=== PATIENT | male | born 1950 | race Caucasian/White ===

== ENCOUNTER 2024-07-21 12:56 | Inpatient (IN) | payer MEDICARE ==
[~2024-07-21] VITALS: Ht 180.3 cm; Wt 99.8 kg
[~2024-07-21 12:56] MED LIST: ARICEPT5 M1 PO; IBUPROFEN600 MG PO; SEROQUEL50 MG PO; ZESTRIL10 MG PO
[2024-07-21] MEDS ORDERED: LORazepam 1 MG TAB PO PRN (14:05)
[2024-07-21] MEDS ORDERED: Water, Sterile 10 ML VIAL IM PRN (14:05)
[2024-07-21] MEDS ORDERED: LORazepam 2 MG/ML VIAL IM PRN (14:05)
[2024-07-21] MEDS ORDERED: Ziprasidone Mesylate 20 MG VIAL IM PRN (14:10)
[2024-07-21] MEDS ORDERED: MG-AL HYDROXIDE/SIMETICONE 30 ML UDC PO PRN (15:25)
[2024-07-21] MEDS ORDERED: Magnesium Hydroxide 30 ML UDC PO PRN (15:25)
[2024-07-21] MEDS ORDERED: ACETAMINOPHEN 325 MG TAB PO PRN (15:25)
[2024-07-21] MEDS ORDERED: Menthol/Zinc Oxide 4 GM THIN T PRN (15:35)
[2024-07-21] MEDS ORDERED: IBUPROFEN 600 MG TAB PO PRN (15:55)
[2024-07-21 20:00] VITALS: BP 148/81
[2024-07-21] MEDS ORDERED: Memantine Hydrochloride 10 MG TAB PO SCH (21:00)
[2024-07-21] MEDS ORDERED: DIVALPROEX SODIUM 125 MG CAP PO SCH (21:00)
[2024-07-22 07:00] LABS: BASO % 0.1 % (0.0-1.0); MEAN CELL VOLUME 88.1 fl (80.0-94.0); MEAN CORPUSCULAR HGB 29.5 pg (27.0-31.0); MEAN CORPUSCULAR HGB CONC 33.6 g/dl (33.0-37.0); MEAN PLATELET VOLUME 9.8 fl (9.6-12.3); NEUT # 9.6 10*3/uL (2.3-7.9); NEUT % 75.9 % (47.0-73.0); PLATELET COUNT AUTOMATED 320 10*3/uL (130-400); RED BLOOD COUNT 5.11 10*6/uL (4.50-5.90); RED CELL DISTRI WIDTH 13.8 % (0-14.5); WHITE BLOOD COUNT 12.6 10*3/uL (4.8-10.8)
[2024-07-22 07:27] LABS: ALKALINE PHOSPHATASE 63 U/L (46-116); BUN 14 mg/dl (9-23); CHLORIDE 102 mmol/L (98-107); CHOLESTEROL 145 mg/dL (<200); LDL CHOLESTEROL 83 mg/dL (9-159); POTASSIUM 4.2 mmol/L (3.4-5.1); SGPT/ALT 23 U/L (5-49); TOTAL PROTEIN 6.6 gm/dL (6.0-8.0); TRIGLYCERIDES 94 mg/dl (<150)
[2024-07-22 08:00] VITALS: BP 104/62
[2024-07-22 08:15] LABS: VITAMIN D, 25-HYDROXY 56.5 ng/mL (30-100)
[2024-07-22] MEDS ORDERED: Rivastigmine Tartrate 4.6 MG/24 HR PATCH T SCH (09:00)
[2024-07-22] MEDS ORDERED: LISINOPRIL 10 MG TAB PO SCH (10:00)
[2024-07-22 20:00] VITALS: BP 100/58
[2024-07-22] MEDS ORDERED: Memantine Hydrochloride 10 MG TAB PO SCH (21:00)
[2024-07-23 09:20] VITALS: BP 112/80
[2024-07-23 20:00] VITALS: BP 115/68
[2024-07-24 08:00] VITALS: BP 124/76
[2024-07-24] MEDS ORDERED: Rivastigmine Tartrate 9.5 MG/24 HR PATCH T SCH (09:00)
[2024-07-24 19:17] VITALS: BP 116/69
[2024-07-25 08:34] VITALS: BP 134/83
[2024-07-25] MEDS ORDERED: Paliperidone 3 MG TER PO SCH (10:35)
[2024-07-25 15:45] LABS: BILIRUBIN Negative (Negative); BLOOD Negative (Negative); CLARITY Clear (Clear); COLOR Yellow (Yellow); GLUCOSE Negative (Negative); KETONE Trace (Negative); LEUKO ESTERASE Negative (Negative); NITRITE Negative (Negative); PH 6.5 (4.5-8.0); SPECIFIC GRAVITY 1.015 (1.001-1.030)
[2024-07-25 15:57] LABS: EPITHELIAL CELLS 0-2; HYALINE CAST 0-2; MUCOUS TRACE
[2024-07-25 20:00] VITALS: BP 130/40
[2024-07-25] MEDS ORDERED: Memantine Hydrochloride 10 MG TAB PO SCH (21:00)
[2024-07-25 21:42] VITALS: BP 122/66
[2024-07-26 07:57] VITALS: BP 123/59
[2024-07-26 20:00] VITALS: BP 152/89
[2024-07-27 08:00] VITALS: BP 128/88
[2024-07-27] MEDS ORDERED: RIVASTIGMINE 13.3 MG/24 HR TDM T SCH (09:00)
[2024-07-27 19:48] VITALS: BP 112/47
[2024-07-28 08:00] VITALS: BP 134/73
[2024-07-28] MEDS ORDERED: PALIPERIDONE PALMITATE 234 MG INJECTION IM ONE (10:05)
[2024-07-28 19:48] VITALS: BP 133/86
[2024-07-29 07:16] LABS: BASO % 0.2 % (0.0-1.0); EOS # 0.1 10*3/uL (0.0-0.4); EOS % 0.6 % (1.0-4.0); MEAN CELL VOLUME 89.2 fl (80.0-94.0); MEAN CORPUSCULAR HGB 29.5 pg (27.0-31.0); MEAN PLATELET VOLUME 9.2 fl (9.6-12.3); MONO # 1.2 10*3/uL (0.1-1.0); MONO % 11.3 % (3.0-9.0); NEUT # 6.7 10*3/uL (2.3-7.9); NEUT % 64.6 % (47.0-73.0); PLATELET COUNT AUTOMATED 282 10*3/uL (130-400); RED BLOOD COUNT 4.82 10*6/uL (4.50-5.90); WHITE BLOOD COUNT 10.3 10*3/uL (4.8-10.8)
[2024-07-29 07:27] LABS: ALKALINE PHOSPHATASE 69 U/L (46-116); BUN 12 mg/dl (9-23); CHLORIDE 103 mmol/L (98-107); POTASSIUM 4.7 mmol/L (3.4-5.1); SGPT/ALT 11 U/L (5-49); TOTAL PROTEIN 6.2 gm/dL (6.0-8.0)
[2024-07-29 08:00] VITALS: BP 117/68
[2024-07-29 20:00] VITALS: BP 98/60
[2024-07-30 08:00] VITALS: BP 102/64
[2024-07-30 20:00] VITALS: BP 98/58
[2024-07-31 08:00] VITALS: BP 123/79
[2024-07-31] MEDS ORDERED: hydrOXYzine pamoate 25 MG CAP PO SCH (13:00)
[2024-07-31 22:03] VITALS: BP 102/62
[2024-08-01 08:15] VITALS: BP 82/58
[2024-08-01] MEDS ORDERED: PALIPERIDONE PALMITATE 156 MG INJECTION IM SCH (10:05)
[2024-08-01 20:00] VITALS: BP 97/51
[2024-08-02] MEDS ORDERED: HYDROXYZINE PAM25 M1 PO (07:33)
[2024-08-02] MEDS ORDERED: MEMANTINE HCL10 MG PO (07:33)
[2024-08-02] MEDS ORDERED: RIVASTIGMINE1 EAC2 T (07:33)
[2024-08-02] MEDS ORDERED: INVEGA SUSTENN156 MG IM (07:33)
[2024-08-02 08:00] VITALS: BP 120/74
== END 2024-08-02 11:56 | DRG 883 ==
LOC: 3N 12:56
PROVIDERS: Nurse Practitioner; ADMIT Psychiatry & Neurology Psychiatry; ATTEND Psychiatry & Neurology Psychiatry
PROC: GZHZZZZ Group Psychotherapy (ICD-10-PCS; principal; 2024-07-23)
PROC: GZ51ZZZ Individual Psychotherapy, Behavioral (ICD-10-PCS; 2024-07-23)
DX: F63.81 Intermittent explosive disorder (principal); G93.41 Metabolic encephalopathy; E44.0 Moderate protein-calorie malnutrition; F23 Brief psychotic disorder; D72.829 Elevated white blood cell count, unspecified; I10 Essential (primary) hypertension; G30.9 Alzheimer's disease, unspecified; F02.80 Dementia in other diseases classified elsewhere, unspecified severity, without behavioral disturbance, psychotic disturbance, mood disturbance, and anxiety; Z79.899 Other long term (current) drug therapy; Z68.30 Body mass index [BMI] 30.0-30.9, adult